=== PATIENT | male | born 1995 | race Caucasian/White ===

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

== ENCOUNTER 2017-01-27 10:41 | Emergency (ER) | payer MEDICAID ==
[~2017-01-27] VITALS: Ht 182.9 cm; Wt 81.6 kg
[2017-01-27 10:41] VITALS: BP_SYST 128
--- NOTE | 2017-01-27 10:41 | NUR ---
BROUGHT BACK TO BED #3 AND TRIAGED. REPORT GIVEN TO RUSSEL
--- NOTE | 2017-01-27 10:41 | NUR ---
Pt report received from AURELIANO Lawrence. Pt c/o N/V since this AM with epigastric pain at 6. Pt also states that he had an episode of diarrhea this am. Mother at bedside.
--- NOTE | 2017-01-27 10:50 | NUR ---
Dr. Aguilar at bedside to assess pt.
[2017-01-27] MEDS ORDERED: NACL 0.9% 1,000 ML IV ONE (10:57)
[2017-01-27] MEDS ORDERED: ONDANSETRON HCL 4 MG/2 ML VIAL IVP ONE (11:00)
--- NOTE | 2017-01-27 11:15 | NUR ---
# 20 gauge angiocath placed to RAC. Use of asceptic technique. Opsite placed over site. Blood return noted. Blood for lab drawn from site. Flushed with 10 cc of normal saline. No evidence of infiltration noted. Patient tolerated well.
[2017-01-27 11:42] LABS: BARBITURATE, URINE NEGATIVE (NEG <=200); BENZODIAZEPINE, URINE NEGATIVE (NEG <=150); CANNABINOID, URINE NEGATIVE (NEG <=50); COCAINE, URINE NEGATIVE (NEG <=150); METHAMPHETAMINES SCREEN,URINE NEGATIVE (NEG <=500); OPIATE, URINE NEGATIVE (NEG <=100); PHENCYCLIDINE SCREEN,URINE NEGATIVE (NEG <=25); UR TRICYCLIC ANTIDEPRESSANTS NEGATIVE (NEG <=300); URINE AMPHETAMINE NEGATIVE (NEG <=500); URINE METHADONE NEGATIVE (NEG <=200); URINE OXYCODONE SCREEN NEGATIVE (NEG <=100); URINE PROPOXYPHENE SCREEN NEGATIVE (NEG <=300)
[2017-01-27 11:43] LABS: CALCIUM 9.2 mg/dL (8.4-11.0); CREATININE 1.06 mg/dL (0.55-1.30); POTASSIUM 4.1 mmol/L (3.5-5.1)
[2017-01-27] MEDS ORDERED: MAG HYDROX/AL HYDROX/SIMETH 30 ML, BELLADONNA ALKALOIDS/PHENOBARB 10 ML, LIDOCAINE VISC... PO ONE ×3 (12:15)
--- NOTE | 2017-01-27 12:56 | NUR ---
Patient given written and verbal discharge instructions and verbalizes understanding. ER MD discussed with patient the results and treatment provided. Patient in stable condition. ID arm band removed. IV catheter removed intact and dressing applied, no active bleeding. Rx of Zofran given. Patient educated on pain management and to follow up with PMD. Pain Scale 0/10. Opportunity for questions provided and answered.
[2017-01-27 12:57] VITALS: BP_SYST 121
== END 2017-01-27 12:57 | disposition home or self-care (01) ==
LOC: SED 10:41
DX: K29.70 Gastritis, unspecified, without bleeding (principal)
CPT/HCPCS: 36415; 71010; 80048; 80307; 96361; 96374; 99285; J2001; J2405; J7030

== ENCOUNTER 2019-03-12 18:46 | Emergency (ER) | payer MEDICAID ==
[~2019-03-12] VITALS: Ht 180.3 cm; Wt 86.2 kg
[2019-03-12 19:02] VITALS: BP_SYST 125
--- NOTE | 2019-03-12 19:06 | NUR ---
Patient to ER bed 1 to gown for evaluation. Side rails up.
--- NOTE | 2019-03-12 19:09 | NUR ---
PATIENT PRESENTS TO THE ER WITH TWO DAY HX OF BILATERAL TESTICULAR PAIN WITH SWELLING; NO TRAUMA, NO OTHER REMARKABLE S/S; TO ER #1 AT 1905
--- NOTE | 2019-03-12 19:50 | NUR ---
ER at bedside examining patient.
[2019-03-12] MEDS ORDERED: cefTRIAXone 0.75 GM in LIDOCAINE 1%, 20 ML MDV 2.1 ML IM ONE (21:00)
[2019-03-12 22:05] VITALS: BP_SYST 128
--- NOTE | 2019-03-12 22:05 | NUR ---
Patient given written and verbal discharge instructions and verbalizes understanding. ER MD discussed with patient the results and treatment provided. Patient in stable condition. ID arm band removed. Rx of Levofloxacin given. Patient educated on pain management and to follow up with PMD. Pain Scale 0/10. Opportunity for questions provided and answered. Medication side effect fact sheet provided.
[2019-03-12 22:26] LABS: BILIRUBIN,URINE NEGATIVE (NEGATIVE); BLOOD, URINE NEGATIVE (NEGATIVE); CLARITY/URINE CLEAR (CLEAR); COLOR,URINE YELLOW (YELLOW); GLUCOSE,URINE NEGATIVE (NEGATIVE); KETONES,URINE NEGATIVE (NEGATIVE); LEUKOCYTE ESTERASE ,URINE NEGATIVE (NEGATIVE); NITRITE, URINE NEGATIVE (NEGATIVE); PROTEIN URINE NEGATIVE (NEGATIVE); UROBILINOGEN,URINE 0.2 (0.2-1.0)
[2019-03-16 01:07] LABS: CHLAMYDIA TRACHOMATIS NAA Negative (Negative); NEISSERIA GONORRHOEAE NAA Negative (Negative)
== END 2019-03-12 22:05 | disposition home or self-care (01) ==
LOC: SED 18:46
DX: N45.1 Epididymitis (principal)
CPT/HCPCS: 76870; 81003; 87491; 87591; 96372; 99284; J0696; J2001

== ENCOUNTER 2019-08-03 13:05 | Emergency (ER) | payer MEDICAID ==
[~2019-08-03] VITALS: Ht 180.3 cm; Wt 79.4 kg
[2019-08-03 13:18] VITALS: BP_SYST 130
--- NOTE | 2019-08-03 13:24 | NUR ---
Patient triaged and placed in waiting room. VSS and patient appears in no acute distress at this time. Accompanied by father , awaiting available bed, and MD notified of need for MSE.per MD no EKG needed at this time.
--- NOTE | 2019-08-03 13:25 | NUR ---
Pt broguht by self, A&Ox4, pt presents to ER with near syncope episode while he was stretching his neck at home, per patient he had blurred vision after, pt denies blurred vision at this time, skin pink and warm, cap refill <3, VSS, respirations even and unlabored
--- NOTE | 2019-08-03 13:45 | NUR ---
Dr Boyle at bedside examining patient
[2019-08-03 13:51] VITALS: BP_SYST 130
--- NOTE | 2019-08-03 14:40 | NUR ---
Patient given written and verbal discharge instructions and verbalizes understanding. ER MD discussed with patient the results and treatment provided. Patient in stable condition. ID arm band removed. No Rx given. Patient educated on pain management and to follow up with PMD. Pain Scale 0/10. Opportunity for questions provided and answered. Medication side effect fact sheet provided.
== END 2019-08-03 13:51 | disposition home or self-care (01) ==
LOC: SED 13:05
DX: R55 Syncope and collapse (principal)
CPT/HCPCS: 99281